=== PATIENT | male | born 1955 | race Caucasian/White ===

== ENCOUNTER 2022-11-05 08:55 | Emergency (ER) | payer MEDICAID ==
[~2022-11-05] VITALS: Ht 180.3 cm; Wt 113.4 kg
[2022-11-05 08:58] VITALS: BP 149/73; PULSE 100; RESP 18; TEMP 96.7; O2SAT 97
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
[2022-11-05 09:03] VITALS: BP 122/75; PULSE 102; RESP 25; TEMP 98; O2SAT 96
[2022-11-05] MEDS ORDERED: BACO TP (10:34)
[2022-11-05] MEDS ORDERED: ACET-10509 PO (10:34)
[2022-11-05] MEDS ORDERED: BACITRACIN OINT 500 UNITS/GM PKT TP ONE (10:35)
[2022-11-05 10:55] VITALS: BP 122/68; PULSE 76; RESP 18; TEMP 98; O2SAT 100
--- NOTE | 2022-11-05 12:04 | NUR ---
Patient discharged with v/s stable. Written and verbal after care instructions given and explained. Patient alert, oriented and verbalized understanding of instructions. Ambulatory with steady gait. All questions addressed prior to discharge. ID band removed. Patient advised to follow up with PMD. Rx of BACITRACIN, ACETAMINOPHEN given. Patient educated on indication of medication including possible reaction and side effects. Opportunity to ask questions provided and answered.
== END 2022-11-05 12:04 | disposition home or self-care (01) ==
LOC: MED 08:55
DX: S01.112A Laceration without foreign body of left eyelid and periocular area, initial encounter (principal); Z79.899 Other long term (current) drug therapy; W19.XXXA Unspecified fall, initial encounter; Y93.01 Activity, walking, marching and hiking; Y92.89 Other specified places as the place of occurrence of the external cause; Y99.8 Other external cause status
CPT/HCPCS: 12013; 73080; 73110; 99284

== ENCOUNTER 2022-11-07 08:01 | Emergency (ER) | payer MEDICAID ==
[~2022-11-07] VITALS: Ht 182.9 cm; Wt 99.8 kg
[~2022-11-07 08:01] MED LIST: ACET-10509 PO; BACO TP
[2022-11-07 08:07] VITALS: BP 117/81; PULSE 84; RESP 20; TEMP 98; O2SAT 99
[2022-11-07 10:24] LABS: BASOPHILS % (AUTO) 0.4 % (0.0-2.0); EOSINOPHILS # (AUTO) 0.4 K/uL (0-0.4); EOSINOPHILS % (AUTO) 3.6 % (0.0-4.0); HEMOGLOBIN 14.5 g/dL (12.0-18.0); LYMPHOCYTES # (AUTO) 1.2 K/uL (2.0-11.5); LYMPHOCYTES % (AUTO) 12.4 % (20.5-51.1); MEAN CORPUSCULAR HEMOGLOBIN 30 pg (27-31); MEAN CORPUSCULAR HGB CONC 34 g/dL (33-37); MEAN CORPUSCULAR VOLUME 90.1 fL (80-94); NEUTROPHILS # (AUTO) 7.2 K/uL (1.8-7.7); NEUTROPHILS % (AUTO) 73.6 % (42.2-75.2); PLATELET COUNT (AUTO) 164 K/uL (140-450); RED BLOOD CELL COUNT(AUTO) 4.78 MIL/uL (4.20-6.10); RED CELL DISTRIBUTION WIDTH 14.2 % (11.6-13.7); WHITE BLOOD COUNT (AUTO) 9.8 K/uL (4.8-10.8)
[2022-11-07 10:31] LABS: ALBUMIN 3.5 g/dL (3.4-5.0); ANION GAP 10.5 (8-16); ASPARTATE AMINOTRANSFERASE 31 U/L (15-37); CARBON DIOXIDE 29.2 mmol/L (21-32); CHLORIDE 104 mmol/L (98-107); GFR ARICAN-AMERICAN 96 mL/min (>90); GLUCOSE 116 mg/dL (74-106); LIPASE 55 U/L (73-393); POTASSIUM 4.7 mmol/L (3.5-5.1); SODIUM SERUM 139 mmol/L (136-145); TOTAL BILIRUBIN 0.9 mg/dL (0.0-1.0); UREA NITROGEN, BLOOD 21 mg/dL (7-18)
[2022-11-07 10:32] LABS: ACETAMINOPHEN < 0.5 ug/ml (10-30); SALICYLATE < 2.8 mg/dL (2.8-20.0)
[2022-11-07 12:23] VITALS: BP 116/81; PULSE 80; RESP 20; TEMP 98; O2SAT 99
--- NOTE | 2022-11-07 12:23 | NUR ---
Patient discharged with v/s stable. Written and verbal after care instructions FOR FALL PREVENTION AND HEAD INJURY given and explained. Patient verbalized understanding. Ambulatory with steady gait. All questions addressed prior to discharge. Advised to follow up with PMD. Addendum: 11/07/22 at 1227 by [facility]
--- NOTE | 2022-11-07 12:23 | NUR ---
The patient's care was reviewed and supervised by HENRI FELICIANO RN.
== END 2022-11-07 12:23 | disposition home or self-care (01) ==
LOC: MED 08:01
DX: S06.0X0A Concussion without loss of consciousness, initial encounter (principal); W18.30XA Fall on same level, unspecified, initial encounter; Y93.89 Activity, other specified; Y92.89 Other specified places as the place of occurrence of the external cause; Y99.8 Other external cause status
CPT/HCPCS: 36415; 70450; 80053; 83690; 85025; 99284; G0480; G0482